=== PATIENT | female | born 1970 | race Caucasian/White ===

== ENCOUNTER → 2022-03-16 12:24 | Outpatient (BNVA) | payer OTHER, SELFPAY | PROVIDERS: Visit Provider Registered Nurse Neonatal Intensive Care | DX: Z20.822 Contact with and (suspected) exposure to COVID-19 (principal); J40 Bronchitis, not specified as acute or chronic | CPT/HCPCS: 87426 ==

== ENCOUNTER 2022-08-08 13:47 | Outpatient (CLI) | payer OTHER, SELFPAY ==
--- NOTE | 2022-08-08 14:04 | MM_ITS ---
WS: [id number] BILATERAL 3D TOMOSYNTHESIS DIGITAL DIAGNOSTIC MAMMOGRAPHY WITH CAD CLINICAL INFORMATION: BREAST LUMP BASELINE TECHNIQUE: Bilateral CC, MLO, and ML views. FINDINGS: Scattered fibroglandular densities bilaterally. Palpable marker RIGHT axillary tail. Normal underlyin g parenchymal tissue. No suspicious focal mass, asymmetry, calcifications, or architectural distortion. Ultrasound area of concern described below. ULTRASOUND BREAST RIGHT TECHNIQUE: Ultrasound RIGHT focused area of concern. CLINICAL INFORMATION: BREAST LUMPS FINDINGS: Ultrasound RIGHT breast 9:00 position 10 cm from the nipple in the area of concern near the axillary tail. Normal underlying parenchymal tissue. Normal-appearing lymph node in the area of palpable андрей rn, measuring 13 x 8 x 6 mm. Preserved fatty hilum. No cortical thickening. No suspicious cystic or s olid lesion to target for biopsy MM/[place] [id number] IMPRESSION: BI-RADS: 2-Benign FOLLOW UP: 1 Year Follow-up Recommend return to annual screening mammography.
== END 2022-08-08 13:48 | disposition home or self-care (01) ==
LOC: RAD 13:49
PROVIDERS: PCP Family Medicine; Visit Provider Family Medicine
DX: N63.10 Unspecified lump in the right breast, unspecified quadrant (principal); N63.20 Unspecified lump in the left breast, unspecified quadrant
CPT/HCPCS: 76642; 77062; G0279

== ENCOUNTER 2022-08-22 10:51 | Outpatient (CLI) | payer OTHER, SELFPAY ==
[2022-08-22 11:27] VITALS: BMI 32.1
--- NOTE | 2022-08-22 11:32 | ECG_ITS ---
[facility] Test Date: 2022-08-22 Pat Name: Kathi Engel Department: Room: Gender: Female Public Address Technician: : 1970 Requested By: Luis Lipscomb Order Number: [id number] Makenna MD: Alfa Lozoya M.D. Interpretive Statements NAME OF STUDY: TREADMILL STRESS ECHOCARDIOGRAM INDICATION: [Chest Pain, ] EXERCISE DATA: The patient was exercised by Gomez protocol. Baseline heart rate was 85 beats per minute. Baseline blood pressure was 155/87 millimeters of mercury. Target heart rate was 143 beats per minute. Maximum heart rate achieved was 163, which was 113% of the target heart rate. Maximum blood pressure was 160/71 millimeters of mercury. Total exercise time was 7 minutes 49 seconds. Maximum METs achieved was 10.2. The reason for ending the test was completion of protocol. The patient complained of shortness of breath during the stress test, which then resolved at the end of the test. ELECTROCARDIOGRAM: BASELINE: Showed sinus rhythm, normal axis, no significant ST-T changes at the baseline noted. [] EXERCISE: At the peak exercise level, [] No significant ST-T changes suggestive of ischemia noted. [] RECOVERY: During the recovery period, heart rate dropped appropriately. No significant ST-T changes in the recovery suggestive of ischemia noted. [] CONCLUSION: 1. Exercise capacity good 2. Heart rate response was appropriate. 3. Blood pressure response was appropriate. 4. Symptoms not suggestive of ischemia. 5. Electrocardiogram portion of the stress test was not suggestive of ischemia. Electronically Signed On 08-25-2022 9:58:47 SURVEYING CREW RODMAN by Alfa Loozya M.D. [email or web address] [facility] CentersIperiauniversity [facility].[employer]/store/OM/[id number]
--- NOTE | 2022-08-22 11:33 | USCV_ITS ---
Stress Echo Kathi Engel Age: 52 Gender: F : 1970 Exam Date: 08/22/2022 12:57 Ordering Phys: Luis Hunt MD Technologist: JUSTO Exam Location: [facility] [place] Indication: chest pain Rhythm: Sinus Patient History: Chest pain Cardiac Medications: NONE Medications in past 24 hours: NONE Contrast: Stress Results Protocol: Gomez Total dose(mL): Exercise Duration (min:sec): 7:49 METS: 10.2 Resting HR: 90 Resting BP: 155 / 87 Peak HR: 163 Peak BP: 164 / 101 Max Predicted HR: 168 97 % Max Predicted HR Target HR: 143 Double Product: [id number] Stress Summary: The patient's target heart rate was achieved BP Response: Normal Reason for Termination: Reached target heart rate or work-load Cardiac Symptoms: None ECG Analysis Resting ECG: Normal sinus rhythm, normal axis with no ST-T wave changes. Stress ECG: Sinus tachycardia with no significant ST-T wave changes Arrhythmia: None MEASUREMENTS (Male/Female) Normal Values 2D ECHO LV Ejection Fraction MOD 2C 49.5 % LV Ejection Fraction 2C AL 48.6 % FINDINGS At baseline LV systolic function is normal with EF of 55 to 60%. No regional wall motion abnormalities are seen. Stress images obtained at heart rates above for target heart rate demonstrated hyperdynamic left ventricle with no regional wall motion abnormalities. No evidence of ischemia seen on stress test. CONCLUSIONS 1. Exercise stress echocardiogram does not show any evidence of ischemia 2. At baseline LV systolic function is normal 3. EKG portion of stress test not showing significant ST-T wave changes. Alfa Lozoya MD (Electronically Signed) Final Date: 25 August 2022 10:13 S
[2022-08-22 13:25] VITALS: BP 136/71; PULSE 99
== END 2022-08-22 10:52 | disposition home or self-care (01) ==
PROVIDERS: PCP Family Medicine; Visit Provider Family Medicine
DX: R07.9 Chest pain, unspecified (principal)
CPT/HCPCS: 93017; 93350

== ENCOUNTER 2022-08-25 08:33 | Emergency (ER) | payer OTHER, SELFPAY ==
[2022-08-25] VITALS (45 sets, daily range): BP systolic 132–161; BP diastolic 61–90; PULSE 72–108; RESP 9–23; TEMP 36.6; O2SAT 90–95; BMI 32.1
--- NOTE | 2022-08-25 08:46 | XR_ITS ---
WS: [id number] Portable AP upright chest, 08/25/2022 Clinical Data: Chest pain Comparison: None. Findings: No nodules, masses or effusions are seen. The heart is normal. The pulmonary vascularity is not increased. No pneumonia or pneumothorax is seen. XR/XR chest 1V portable [id number] Impression: Negative chest.
[2022-08-25] MEDS: aspirin 81 mg Chew Tablet 324 MG PO (08:54)
--- NOTE | 2022-08-25 08:57 | ECG_ITS ---
[facility] Test Date: 2022-08-25 Pat Name: Kathi Engel Department: Room: Gender: Female Bellstand Attendant: : 1970 Requested By: Cachorro Riley Order Number: [id number] Makenna MD: Alfa Lozoya M.D. Measurements Intervals [place] Rate: 94 P: 55 KS: 134 QRS: 29 QRSD: 91 T: 50 QT: 352 QTc: 441 Interpretive Statements SINUS RHYTHM Compared to ECG 08/11/2014 10:09:25 No significant changes Electronically Signed On 08-25-2022 17:30:28 PHYSICIST L[employer]ICS by Alfa Lozoya M.D. [email or web address] [email or web address] [email or web address]/store/[id number]
[2022-08-25 09:18] LABS: Basophils % 0.7 %; Eosinophils # 0.1 10^3/uL (0.0-0.8); Eosinophils % 1.1 %; Hematocrit 46.8 % (37.0-47.0); Lymphocytes # 1.5 10^3/uL (0.8-4.8); Lymphocytes % 24.2 %; Mean Corpuscular HGB Conc 32.1 g/dL (30.0-36.0); Mean Corpuscular Volume 93.6 fl (81-99); Monocytes # 0.3 10^3/uL (0.2-0.9); Monocytes % 5.5 %; Neutrophils # 4.18 10^3/uL (1.8-7.7); Nucleated Red Blood Cells % 0 %; Platelet Count 245 10^3/cmm (130-400); Red Cell Distribution Width 13.2 % (12.1-15.1); White Blood Count 6.2 10^3/uL (4.0-10.0)
--- NOTE | 2022-08-25 09:38 | W.ED.CHESTPA ---
HPI - Chest Pain General: Chief Complaint: Chest Pain Stated Complaint: Tightness in Chest,SOB Time Seen by Provider: 08/25/22 08:45 Source: patient Mode of arrival: ambulatory History of Present Illness: 52-year-old female who presents to the emergency room with complaint of chest discomfort that began overnight. She just generally does not feel well has this fluttering sensation in her chest She had some chest pain radiated into her back with some nausea and lightheadedness that has resolved. Her symptoms have improved at this point. She had a cardiac stress test 3 days ago. No acute ST changes noted during the stress test. The final report is not completed yet. MD complaint: chest pain Timing of current episode: episodic Prior episodes: Yes Onset: during rest Pain location: left chest Pain radiation: back Quality: tightness and aching Relieving factors: nothing Exacerbating factors: nothing Associated symptoms: Deny abdominal pain, dyspnea, fever(s), nausea or vomiting Review of Systems Const: Denies: fever(s), chills, body aches, change in appetite, fatigue or malaise ENMT: Denies: throat pain, ear or mastoid pain, nasal discharge or nasal congestion Card: Denies: chest pain, edema, dyspnea on exertion or orthopnea Resp: Denies: dyspnea, productive cough or non-productive cough GI: Denies: abdominal pain, nausea, vomiting, hematemesis, coffee ground emesis, diarrhea, constipation, bloating, hematochezia or melena : Denies: flank pain, difficulty voiding, dysuria, urinary frequency or urinary urgency Skin/Breast: Denies: rash or pruritus PFSH ED PFSH: Medical History Acute sinusitis Allergic rhinitis due to allergen Social History Smoking and tobacco status: current every day smoker Physical Exam Const: GENERAL APPEARANCE: cooperative and comfortable ORIENTATION/CONSCIOUSNESS: Yes awake, Yes oriented to person, Yes oriented to place and Yes oriented to time HENMT: COMMON NORMALS: normocephalic, atraumatic and hearing grossly normal bilaterally HEAD & SCALP: normocephalic and atraumatic Resp: COMMON NORMALS: normal respiratory effort, No retractions, No use of accessory muscles and clear to auscultation bilaterally AUSCULTATION: clear to auscultation bilaterally Cardio: COMMON NORMALS: regular rate, regular rhythm and No murmurs present (Cardio) RATE: regular rate RHYTHM: regular rhythm GI: COMMON NORMALS: Soft to palpation and No hepatosplenomegaly present AUSCULTATION: Yes normoactive bowel sounds PALPATION: Yes Soft to palpation, No Tenderness to palpation present (GI), No Guarding due to palpation present (GI) and Yes No hepatosplenomegaly present Extremity: COMMON NORMALS: normal to inspection, capillary refill normal, no clubbing, cyanosis or edema, no calf tenderness and no pedal edema Neuro: SENSORIUM/ORIENTATION: Yes oriented to person, Yes oriented to place and Yes oriented to time Skin: COMMON NORMALS: no rashes or lesions noted GENERAL SKIN EXAM: no rashes or lesions noted Course Vital Signs: Vital signs: Vital Signs Temperature 97.8 F 08/25/22 08:45 Pulse Rate 78 08/25/22 12:15 Respiratory Rate 21 H 08/25/22 12:15 Blood Pressure 153/90 08/25/22 12:15 Pulse Oximetry 93 08/25/22 12:10 Oxygen Delivery Me thod 08/25/22 11:43 MDM - Chest Pain Medical Decision Making Patient had a stress echo done 3 days ago initially the read on that had not been forwarded to the chart yet by the time this visit was over it was on the chart and it was negative. Her EKGs in her cardiac enzymes here are also negative. I suspect this is more GI related we will discharge the patient home on Protonix 40 mg twice daily for 2 weeks then daily have her follow-up with primary care if she has any worsening or change symptoms recheck with your primary care doctor. Medical Records I reviewed the patient's medical records. Lab Data I reviewed the patient's lab results. 08/25/22 09:00 08/25/22 09:00 Radiology Impressions Chest X-Ray 08/25/22 08:46 Impression: Negative chest. Laboratory Results WBC 6.2 10^3/uL (4.0-10.0) 08/25/22 09:00 RBC 5.00 10^6/uL (4.1-5.3) 08/25/22 09:00 Hgb 15.0 g/dL (11.5-15.3) 08/25/22 09:00 Hct 46.8 % (37.0-47.0) 08/25/22 09:00 MCV 93.6 fl (81-99) 08/25/22 09:00 MCH 30.0 pg (28.0-34.0) 08/25/22 09:00 MCHC 32.1 g/dL (30.0-36.0) 08/25/22 09:00 RDW 13.2 % (12.1-15.1) 08/25/22 09:00 Plt Count 245 10^3/cmm (130-400) 08/25/22 09:00 MPV 11.0 fL (7.4-10.4) H 08/25/22 09:00 Neut % (Auto) 68.0 % 08/25/22 09:00 Lymph % (Auto) 24.2 % 08/25/22 09:00 [place] % (Auto) 5.5 % 08/25/22 09:00 Eos % (Auto) 1.1 % 08/25/22 09:00 Baso % (Auto) 0.7 % 08/25/22 09:00 Neut # (Auto) 4.18 10^3/uL (1.8-7.7) 08/25/22 09:00 Lymph # (Auto) 1.5 10^3/uL (0.8-4.8) 08/25/22 09:00 [place] # (Auto) 0.3 10^3/uL (0.2-0.9) 08/25/22 09:00 Eos # (Auto) 0.1 10^3/uL (0.0-0.8) 08/25/22 09:00 Baso # (Auto) 0.0 10^3/uL (0.0-0.1) 08/25/22 09:00 Nucleated RBC % (auto) 0 % 08/25/22 09:00 Nucleated RBCs # 0.0 /100WBC 08/25/22 09:00 Sodium 137 mmol/L (136-145) 08/25/22 09:00 Potassium 4.3 mmol/L (3.5-5.1) 08/25/22 09:00 Chloride 100 mmol/L (98-107) 08/25/22 09:00 Carbon Dioxide 23 mmol/L (22-29) 08/25/22 09:00 Anion Gap 18.3 (5-19) 08/25/22 09:00 BUN 17 mg/dL (6-20) 08/25/22 09:00 Creatinine 0.9 mg/dL (0.5-0.9) 08/25/22 09:00 GFR Calculation 65.8 mL/min (90-130) L 08/25/22 09:00 Glucose 125 mg/dL (65-115) H 08/25/22 09:00 Calculated Osmolality 287 mOsm/kg (285-295) 08/25/22 09:00 Calcium 9.3 mg/dL (8.5-10.5) 08/25/22 09:00 Total Bilirubin 0.2 mg/dL (0.15-1.2) 08/25/22 09:00 AST 26 U/L (0-32) 08/25/22 09:00 ALT 28 U/L (0-33) 08/25/22 09:00 Alkaline Phosphatase 102 U/L (35-105) 08/25/22 09:00 Troponin T Baseline 6 ng/L (0-10) 08/25/22 09:00 Troponin T 120 Minute 6.00 ng/L (0-10) 08/25/22 11:07 Delta Troponin T 0 ABS# (0-10) 08/25/22 11:07 Total Protein 7.0 g/dL (6.6-8.7) 08/25/22 09:00 Albumin 4.5 g/dL (3.5-5.2) 08/25/22 09:00 Globulin 2.5 g/dL (1.3-4.6) 08/25/22 09:00 Discharge Plan Discharge Patient Disposition: Home Clinical Impression: Atypical chest pain, Chest pain due to gastrointestinal reflux disease Condition: Stable Prescriptions: New Protonix 40 mg tablet,delayed release (DR/EC) 40 mg PO BID Qty: 45 0RF Rx Instructions: 1 p.o. twice daily x14 days then 1 p.o. daily Discharge Orders: Discharge ED (Routine); Ordered 08/25/22 Ordered By: Cachorro Rivera Referrals: Luis Hunt MD [Primary Care Provider] - Discharge Diet: Usual diet Discharge Activity: Resume usual activity Patient Instructions: Opioid Safety, Pain Management Activity Restrictions/Additional Instructions: You are seen today for chest pain. Your recent stress echo was reviewed and was negative. Your EKG and cardiac enzymes today were also negative. Suspect the discomfort you are noting is noncardiac related we will start you on a medicine for your stomach follow-up with your primary care doctor within the week. Coding Level of Care Code ED Lye Bath Operator for Stephane Bermudez
[2022-08-25 09:39] LABS: Alanine Aminotransferase 28 U/L (0-33); Albumin Level 4.5 g/dL (3.5-5.2); Alkaline Phosphatase 102 U/L (35-105); Anion Gap 18.3 (5-19); Aspartate Amino Transferase 26 U/L (0-32); Blood Urea Nitrogen 17 mg/dL (6-20); Calcium 9.3 mg/dL (8.5-10.5); Carbon Dioxide 23 mmol/L (22-29); Chloride 100 mmol/L (98-107); Globulin 2.5 g/dL (1.3-4.6); Glomerular Filtration Rate 65.8 mL/min (90-130); Glucose 125 mg/dL (65-115); Osmolality Calculated 287 mOsm/kg (285-295); Potassium 4.3 mmol/L (3.5-5.1); Sodium 137 mmol/L (136-145); Total Bilirubin 0.2 mg/dL (0.15-1.2)
[2022-08-25 09:40] LABS: Troponin(5th) Baseline 6 ng/L (0-10)
--- NOTE | 2022-08-25 10:46 | ECG_ITS ---
[facility] Test Date: 2022-08-25 Pat Name: Kathi Engel Department: Room: Gender: Female Surgical Scheduler: : 1970 Requested By: Cachorro Riley Order Number: [id number] Makenna MD: Alfa Lozoya M.D. Measurements Intervals [place] Rate: 77 P: 51 AL: 148 QRS: 21 QRSD: 94 T: 46 QT: 392 QTc: 445 Interpretive Statements SINUS RHYTHM Compared to ECG 08/25/2022 08:57:11 No significant changes Electronically Signed On 08-25-2022 17:32:34 HAND BINDER STRIPPER by Alfa Lozoya M.D. [email or web address] regional hospitalCrunch Accountingkeenan private hospitalDrivy/store/OM/[id number]
[2022-08-25 12:03] LABS: Troponin 5 2HR Delta 0 ABS# (0-10)
== END 2022-08-25 13:10 | disposition home or self-care (01) ==
PROVIDERS: Emergency Provider Family Medicine; PCP Family Medicine
DX: R07.89 Other chest pain (principal); K21.9 Gastro-esophageal reflux disease without esophagitis; F17.210 Nicotine dependence, cigarettes, uncomplicated
CPT/HCPCS: 71045; 80053; 84484; 85025; 93005; 99285

== ENCOUNTER → 2023-10-01 07:37 | Outpatient (BNVA) | payer OTHER, SELFPAY | PROVIDERS: PCP Family Medicine; Visit Provider Family Medicine Adult Medicine | DX: R68.89 Other general symptoms and signs (principal); K21.9 Gastro-esophageal reflux disease without esophagitis; J02.9 Acute pharyngitis, unspecified; B34.9 Viral infection, unspecified; J30.9 Allergic rhinitis, unspecified | CPT/HCPCS: 87400 ==

== ENCOUNTER 2024-04-14 04:29 | Emergency (ER) | payer OTHER, SELFPAY ==
[2024-04-14 04:36] VITALS: BP 99/61; PULSE 86; RESP 18; TEMP 36.7; O2SAT 97; BMI 32.9
--- NOTE | 2024-04-14 04:36 | XRR_ITS ---
PROCEDURE INFORMATION: Exam: XR Right Ankle Exam date and time: 04/14/2024 4:49 AM Age: 53 years old Clinical indication: Injury or trauma; Fall; Blunt trauma; Ankle; Right; Additional info: Fall, ankle pain TECHNIQUE: Imaging protocol: Radiologic exam of the right ankle. Views: 3 or more views. COMPARISON: No relevant prior studies available. FINDINGS: Bones/joints: Nondisplaced fracture of the distal fibula. No additional osseous or joint abnormality. Soft tissues: Lateral swelling. XR/XR ankle RT min 3V* [id number] IMPRESSION: Fracture of the distal fibula.
--- NOTE | 2024-04-14 04:48 | W.ED.EXTPRO ---
HPI - Extremity Problem General: Chief complaint: Extremity Injury, Lower Stated complaint: Rt Foot Injury Time Seen by Provider: 04/14/24 04:35 History of Present Illness: 53-year-old woman who presents to the emergency room after he tripped and twisted her right ankle. She is having pain bilaterally. No other injuries. Related Data Previous Rx's Medication Instructions Recorded benzocaine 15 mg-menthol 10 mg 1 lobito mucous membrane .q 2 hr sore 10/01/23 lozenges (Chloraseptic Max) throat #15 ea dextromethorphan-guaifenesin 15 5 ml PO QID PRN cough #118.3 mL 10/01/23 mg-200 mg/5 mL oral liquid fexofenadine 60 mg tablet (Delores 60 mg PO DAILY PRN drainage #30 10/01/23 Allergy) tabs pantoprazole 40 mg tablet,delayed 40 mg PO BID acid reflux #60 tabs 10/20/23 release (Protonix) hydrocodone 5 mg-acetaminophen 325 1 tab PO Q6H PRN pain #20 tabs 04/14/24 mg tablet ondansetron 8 mg disintegrating 8 mg PO Q6H #14 tabs 04/14/24 tablet polyethylene glycol 3350 17 17 g PO DAILY #510 grams 04/14/24 gram/dose oral powder (Miralax) Allergies Allergy/AdvReac Type Severity Reaction Status Date / Time No Known Allergies Allergy Verified 04/14/24 04:39 Review of Systems Narrative: Constitutional symptoms: Negative except as documented in HPI. Skin symptoms: Negative except as documented in HPI. Eye symptoms: Negative except as documented in HPI. ENMT symptoms: Negative except as documented in HPI. Respiratory symptoms: Negative except as documented in HPI. Cardiovascular symptoms: Negative except as documented in HPI. Gastrointestinal symptoms: Negative except as documented in HPI. Genitourinary symptoms: Negative except as documented in HPI. Musculoskeletal symptoms: Negative except as documented in HPI. Neurologic symptoms: Negative except as documented in HPI. Psychiatric symptoms: Negative except as documented in HPI. Endocrine symptoms: Negative except as documented in HPI. [facility] ED PFSH: Medical History (Updated 04/14/24 @ 05:03 by Ariana Rodriguez MD) GERD (gastroesophageal reflux disease) Pharyngitis with viral syndrome Allergic rhinitis due to allergen Acute sinusitis Social History Smoking and tobacco/nicotine status: current every day tobacco/nicotine user Physical Exam Narrative: EXAM NARRATIVE: General: Alert, no acute distress. Skin: warm and dry Head: Normocephalic Neck: Trachea midline Eye: Extraocular movements are intact. Ears, nose, mouth and throat: Oral mucosa moist Respiratory: Respirations are non-labored Musculoskeletal: Normal ROM Neurological: Alert and oriented, No focal neurological deficit observed. Psychiatric: Cooperative, appropriate mood & affect. Course Vital Signs: Vital signs: Vital Signs Temperature 98.0 F 04/14/24 04:36 Pulse Rate 89 04/14/24 05:17 Respiratory Rate 18 04/14/24 04:36 Blood Pressure 98/59 04/14/24 05:17 Pulse Oximetry 97 04/14/24 05:17 Oxygen Delivery Me thod Room Air 04/14/24 04:36 MDM - Extremity (Nontraumatic) Medical Decision Making Of the right ankle shows a right mildly displaced fibular fracture. Films were interpreted by myself the emergency room provider and pending final radiology review. Reexamination: No altered mental status. No focal motor deficits. Splint has been placed. Patient is neurovascularly intact. Pain seems better controlled at this time. Assessment and plan: Ankle fracture ?[place] here in the emergency room. Splint placed by nursing. I examined personally. Neurovascularly intact. Crutches given to the patient. Training given as well. - Discharged home - Discussed plan with patient. Answered any questions. - Evaluation and treatment of this problem were appropriate in the emergency setting. XR interpretation done by ED provider, pending radiology final review Discharge Plan Discharge Patient Disposition: Home Clinical Impression: Ankle fracture Condition: Stable Prescriptions: New hydrocodone-acetaminophen 5-325 mg tablet 1 tab PO Q6H PRN (Reason: pain) Qty: 20 0RF ondansetron 8 mg tablet,disintegrating 8 mg PO Q6H Qty: 14 0RF Rx Instructions: Take 1/2-1 tab every 6 hours as needed for nausea and vomiting polyethylene glycol 3350 [Miralax] 17 gram/dose powder 17 g PO DAILY Qty: 510 0RF Rx Instructions: Take 1 scoop daily while taking pain medications. No Action Chloraseptic Max 15-10 mg lozenge 1 lobito mucous membrane .q 2 hr Qty: 15 1RF fexofenadine [Delores Allergy] 60 mg tablet 60 mg PO DAILY PRN (Reason: drainage) Qty: 30 0RF dextromethorphan-guaifenesin 15-200 mg/5 mL liquid 5 ml PO QID PRN (Reason: cough) Qty: 118.3 0RF Protonix 40 mg tablet,delayed release (DR/EC) 40 mg PO BID Qty: 60 2RF Rx Instructions: 1 p.o. BID daily Discharge Orders: Discharge ED (Routine); Ordered 04/14/24 Ordered By: Ariana Rodriguez Referrals: Luis Hunt MD [Primary Care Provider] - Baljit Dubois DO [Physician] - 4-7 days (Please call for follow-up appointment) Discharge Diet: Usual diet Discharge Activity: Limit activity as instructed Patient Instructions: Ankle Fracture (ED), Crutch Instructions (ED), Splint Care (ED), Opioid Safety Activity Restrictions/Additional Instructions: Thank you for choosing [facility] for your healthcare needs today. Please realize this is an emergency room and that we are providing you with a medical screening exam and this may not be complete and all inclusive of all the testing and or work up that you may need to determine your ailment or severity of your illness. You have been screened and evaluated and felt safe for discharge. Health conditions do change or evolve sometimes and as such it is important that you follow up with your Primary Doctor to be re checked, 3-5 days is a general good time frame for follow up. You are always welcome to return to the ED for re assessment if your symptoms are worsening or you have new concerns Coding Level of Care Code ED Mannequin Mold Maker for Stephane Bermudez
[2024-04-14] MEDS: ondansetron 4 MG Tablet PO (05:13)
[2024-04-14] MEDS: HYDROcodone-acetaminophen 10-325 mg Tablet 1 TAB PO (05:13)
[2024-04-14 05:17] VITALS: BP 98/59; PULSE 89; O2SAT 97
[2024-04-14 05:23] VITALS: BP 124/74; PULSE 85; O2SAT 95
== END 2024-04-14 05:25 | disposition home or self-care (01) ==
PROVIDERS: Emergency Provider Emergency Medicine; PCP Family Medicine
DX: S82.831A Other fracture of upper and lower end of right fibula, initial encounter for closed fracture (principal); W18.40XA Slipping, tripping and stumbling without falling, unspecified, initial encounter; Z72.0 Tobacco use
CPT/HCPCS: 29515; 73610; 99283; E0114; Q0162

== ENCOUNTER 2024-04-22 09:51 | Day surgery (SDC) | payer OTHER, SELFPAY ==
[2024-04-22] VITALS (13 sets, daily range): BP systolic 95–146; BP diastolic 66–91; PULSE 67–88; RESP 13–23; TEMP 36.3–36.4; O2SAT 92–96
[2024-04-22] MEDS: sodium chloride 0.9% 1,000 ML 30 ML IV (10:24)
[2024-04-22] MEDS: CELEcoxib 200 mg Capsule 400 MG PO (10:25)
[2024-04-22] MEDS: gabapentin 300 mg Capsule PO (10:25)
--- NOTE | 2024-04-22 11:20 | ANES.PREANE2 ---
Pre-Anesthetic Assessment Height/Weight: Height 1.65 m Weight 89.811 kg Temp Pulse Resp BP Pulse Ox O2 Del Method 97.4 F L 70 18 145/88 93 Room Air 04/22/24 09:57 04/22/24 11:10 04/22/24 11:10 04/22/24 11:10 04/22/24 11:10 04/22/24 11:10 Preop Diagnosis: Right fibular fracture Operation Date: 04/22/24 11:40 Proposed Procedures p ORIF Ankle ORIF Distal Fibula(Right) - Surendra Moore DPM Familial anesthetic complications: none Was Beta Ligia taken within 24 hours: N/A Was Clonidine taken within 24 hours: N/A Last intake: Intake Last Liquid Date 04/21/24 Last Liquid Time 21:30 Last Solid Date 04/21/24 Last Solid Time 17:30 Social No alcohol and No tobacco Exam alert, oriented x 3, clear to auscultation bilaterally and regular rate & rhythm Airway Mallampati: Class II GI Gastroesophageal Reflux Disease Anesthetic Plan ASA status: 1 Anesthesia: General and Regional (specify below) Risk of > 500 ml blood loss (7ml/kg in children): No Medications/Allergies Home Medications Medication Instructions Recorded Confirmed Last Taken Type hydrocodone 5 mg-acetaminophen 325 1 tab PO Q6H PRN pain #20 tabs 04/14/24 04/21/24 04/20/24 Rx mg tablet ondansetron 8 mg disintegrating 8 mg PO Q6H #14 tabs 04/14/24 04/21/24 Unknown Rx tablet polyethylene glycol 3350 17 17 g PO DAILY #510 grams 04/14/24 04/21/24 04/20/24 Rx gram/dose oral powder (Miralax) Allergies Allergy/AdvReac Type Severity Reaction Status Date / Time No Known Allergies Allergy Verified 04/21/24 09:56 Current Medications Generic Name Dose Route Start Last Admin Trade Name Freq PRN Reason Stop Dose Admin Sodium Chloride 1,000 mls @ 30 mls/hr 04/22/24 10:00 04/22/24 10:24 Sodium Chloride 0.9% IV 04/23/24 09:59 30 mls/hr .Q24H SHARATH Administration PFSH Anesthesia Medical History GERD (gastroesophageal reflux disease) Pharyngitis with viral syndrome Allergic rhinitis due to allergen Acute sinusitis Social History Smoking and tobacco/nicotine status: current every day tobacco/nicotine user (smoke 1 pack every 2 days) Data Anesthesia Cardiac Studies: Stress Echocardiogram 08/22/22
--- NOTE | 2024-04-22 11:21 | ANES.PROC ---
Anesthesia Procedures Procedure/Date: 04/22/24 Nerve Block ^: Nerve Block 1: Main Anesthesia: general anesthesia Time Out Performed: Yes Consent: requested by attending/covering physician, from patient, from other, risks and benefits reviewed and patient agrees to proceed Nerve block location: popliteal (R) Anesthesia monitors applied: pulse oximetry, EKG, BP cuff and oxygen Nerve block position: supine Anesthetic Used: ropivicaine 0.5% (30 ml) and with decadron (4 mg) Ultrasound used to: recognize landmarks and visualize and ID femerol nerve Nerve Stimulator Used?: No Interscalene/Femoral BLK: 4 stimuplex 21 g needle used for position and inplane approach, visualize local anesthetic spread and no vascular puncture identified Injection: neg aspiration of heme Patient Tolerated Procedure: well Complications: none
--- NOTE | 2024-04-22 12:22 | W.PM.OPSUD ---
Surgery/Procedure H&P Update DATE OF PROCEDURE: April 22, 2024 DATE H&P PERFORMED: 04/15/24 H&P UPDATE INFORMATION: I have reviewed H&P completed within last 30 days, I have examined patient prior to procedure, No changes to prior documentation and H&P is in [facility] [place] [place] EMR on date indicated PREOP DIAGNOSIS: Right fibular fracture PLANNED PROCEDURE: Operation Date: 04/22/24 11:40 Proposed Procedures p ORIF Ankle ORIF Distal Fibula(Right) - Surendra Moore DPM
[2024-04-22] MEDS: ceFAZolin 2,000 mg SDV 2000 MG IVP (12:44)
--- NOTE | 2024-04-22 13:31 | P.OP_ITS ---
Operative Report Date of procedure: April 22, 2024 Pre-op diagnosis: Fracture of distal end of right fibula S82.831A Post-op diagnosis: Fracture of distal end of right fibula S82.831A Procedure done: Open reduction internal fixation right distal fibula. CPT code 10562 Implants: [employer] one third tubular plate 6-hole with 3.5 mm locking screws x 5, 3-0 Vicryl, 4-0 Vicryl, skin edilia Surgeon: Surendra Moore DPM Sodium Chlorite Operator: PIETER Estimated blood loss: 2 mL 21 Brief History: Nitesh [place] C fracture right ankle date of injury 04/14/2024, slipped on the lord injuring her right ankle. Concern for syndesmotic instability clinically. Recommended open reduction internal fixation of right distal fibula and possi ble ORIF of syndesmosis. I reviewed at length with the patient, the risks, potential complications, benefits, alternatives, expectations, and typical outcomes associated with the surgery. The risks and potential complications were explained in detail, including but not limited to infection, wound dehiscence or soft tissue complications, bleeding and hematoma, chronic edema, neuritis or nerve damage producing numbness or chronic pain, CRPS, failure to relieve pain or worsening pain, thick / painful / unsightly scar, limited motion / stiffness, malposition, delayed union, malunion, or nonunion, fracture, reaction to implants, anesthetic complications, venous thromboembolism, and deformity recurrence. I discussed the notion of no regrets with the patient as it pertains to complications and outcomes. The patient seemed to understand the nature of the proposed care and required convalescence. They asked appropriate questions, answered to their satisfaction. They are aware no guarantees can be made as to a satisfactory outcome and they understand there may be other possible unforeseen complications or outcomes not listed here that will be treated accordingly if they arise. There were no written or implied guarantees given to the patient. They gave informed consent to proceed. Procedure: Under mild sedation the patient was brought to the operating room and placed onto the operating table in supine position. A timeout was performed. Anesthesia was then administered by the anesthesia service. Popliteal block was performed to the right lower extremity per anesthesia service preoperatively. Well-padded pneumatic tourniquet applied to the right high calf. The right lower extremity was scrubbed, prepped and draped utilizing normal aseptic technique. Right foot and ankle were exanguinated with an Esmarch bandage and tourniquet inflated to 250 mmHg. Attention was directed to the lateral malleolus left ankle where bony landmarks were palpated. Directly over the lateral malleolus a linear longitudinal incision was made through skin with a #15 blade with dissection carried down to the layer periosteum utilizing a combination of sharp and blunt technique. Care was taken to retract and preserve neurovascular and tendinous structures. All bleeders were ligated and cauterized as necessary. Periosteal incision was made and the fracture was identified followed by curettage with a curette and the hematoma was evacuated followed by saline flush. The fracture was reduced this was pulled out to length, the rotated and angulation was reduced, once it was out to anatomic position that was temporarily held in place with a [id number] fracture reduction clamp and fixated utilizing standard AO technique with a one third tubular plate provided by [employer] and 3.5 mm locking screws 2 distal and 3 proximal to the fracture with excellent bony apposition and compression noted. Excellent anatomical reduction of the fibula was obtained and confirmed with AP, oblique and lateral views with intraoperative C arm and screws did not violate the ankle mortise. Ankle joint range of motion was smooth without crepitus., Ankle mortise congruent on C arm in all 3 planes. Incision was irrigated and closed in a layered fashion with periosteum reapproximated with 3-0 Vicryl, subcutaneous tissue with 4-0 Vicryl and skin wi th edilia. Incision was dressed with Adaptic, sterile 4 x 4, Kerlix and James wrap followed by application of a cam boot to the right lower extremity. Tourniquet was deflated and a prompt hyperemic response is noted to the distal digits of the right foot. Patient tolerated the procedure and anesthesia well and was transferred to the PACU with vital signs stable and vascular status intact. Following a period of postoperative monitoring she will be discharged home without home care instructions and scheduled follow-up.
--- NOTE | 2024-04-22 13:31 | W.PM.BPON ---
Date of Procedure: 09/11/23 Surgeon: Surendra Moore DPM Health Services Information Specialist(s): PIETER Procedure(s) performed: Open reduction internal fixation right distal fibula Findings of the procedure(s): None Estimated blood loss: 2 mL Specimen(s) removed: None Post-operative diagnosis: Right distal fibular fracture
--- NOTE | 2024-04-22 14:48 | XR_ITS ---
WS: [id number] Exam: XR ankle RT 2V [id number] Date/Time of Exam: 04/22/2024 2:48 PM Reason For Exam: or pic, orif C-arm images of the RIGHT ankle depict plate and screw fixation involving an oblique fracture of the lower metadiaphysis. The fracture is in satisfactory alignment for healing.
== END 2024-04-22 14:36 | disposition home or self-care (01) ==
PROVIDERS: PCP Family Medicine; Visit Provider Podiatrist Foot & Ankle Surgery
PROC: (CPT 27792; principal; 2024-04-22 11:40)
DX: S82.831A Other fracture of upper and lower end of right fibula, initial encounter for closed fracture (principal); W01.0XXA Fall on same level from slipping, tripping and stumbling without subsequent striking against object, initial encounter; K21.9 Gastro-esophageal reflux disease without esophagitis; F17.210 Nicotine dependence, cigarettes, uncomplicated
CPT/HCPCS: 27792; 73600; 76000; C1713; J0690; J1100; J2250; J2405; J2704; J2795; J3010; J7030

== ENCOUNTER → 2024-05-05 14:46 | Outpatient (BNVA) | payer OTHER, SELFPAY | PROVIDERS: PCP Family Medicine; Visit Provider Podiatrist Foot & Ankle Surgery | DX: Z98.890 Other specified postprocedural states; Z87.81 Personal history of (healed) traumatic fracture; S82.831D Other fracture of upper and lower end of right fibula, subsequent encounter for closed fracture with routine healing; X58.XXXD Exposure to other specified factors, subsequent encounter | CPT/HCPCS: 73610 ==

== ENCOUNTER → 2024-06-02 13:37 | Outpatient (BNVA) | payer OTHER, SELFPAY | PROVIDERS: PCP Family Medicine; Visit Provider Podiatrist Foot & Ankle Surgery | DX: Z98.890 Other specified postprocedural states (principal); Z87.81 Personal history of (healed) traumatic fracture | CPT/HCPCS: 73610 ==

== ENCOUNTER → 2024-06-30 13:24 | Outpatient (BNVA) | payer OTHER, SELFPAY | PROVIDERS: PCP Family Medicine; Visit Provider Podiatrist Foot & Ankle Surgery | DX: Z98.890 Other specified postprocedural states (principal); Z87.81 Personal history of (healed) traumatic fracture | CPT/HCPCS: 73610 ==

== ENCOUNTER 2025-05-22 14:50 | Outpatient (CLI) | payer OTHER, SELFPAY ==
--- NOTE | 2025-05-22 15:00 | MM_ITS ---
WS: [id number] BILATERAL 3D TOMOSYNTHESIS DIGITAL SCREENING MAMMOGRAPHY WITH CAD CLINICAL INFORMATION: SCREENING HISTORY: Screening mammogram. No current complaints. COMPARISON: 2022 TECHNIQUE: Bilateral CC and MLO views. FINDINGS: Scattered fibroglandular densities bilaterally. No suspicious focal mass, asymmetry, calcifications, or architectural distortion. No evidence of malignancy. MM/MM scr BI tomosynthesis [id number] IMPRESSION: DENSITY: There are scattered areas of fibroglandular density. BI-RADS: 1 - Negative. FOLLOW UP: 1 Year Follow-up Recommend return to annual screening mammography.
== END 2025-05-22 14:51 | disposition home or self-care (01) ==
LOC: MOBLMAM 14:52
PROVIDERS: PCP Family Medicine; Visit Provider Family Medicine
DX: Z12.31 Encounter for screening mammogram for malignant neoplasm of breast (principal); R92.323 Mammographic fibroglandular density, bilateral breasts
CPT/HCPCS: 77063; 77067